=== PATIENT | female | born 1980 | race African-American/Black ===

== ENCOUNTER 2018-06-14 12:21 | Emergency (ER) | payer MEDICAID ==
[~2018-06-14] VITALS: Ht 175.3 cm; Wt 93.9 kg
[2018-06-14 14:01] LABS: Basophils # (auto) 0.1 uL; Basophils % (auto) 0.8 % (0.0-2.0); Eosinophils # (auto) 0.1 uL; Eosinophils % (auto) 1.2 % (0.0-7.0); Hematocrit 40.2 % (36.0-46.0); Hemoglobin 13.8 g/dL (12.2-16.2); Lymphocytes # (auto) 1.5 uL; Mean Corpuscular Hgb Conc. 34.5 g/dL (32.0-36.0); Monocytes # (auto) 0.3 uL; Monocytes % (auto) 4.9 % (0.0-12.0); Neutrophils # (auto) 4.4 uL; Neutrophils % (auto) 69.1 % (37.0-80.0); Platelet Count (auto) 265 10^3/uL (140-450); Red Blood Cells 4.78 10^6/uL (4.0-5.20); Red Cell Distribution Width 15.6 % (11.8-14.3); White Blood Cell 6.4 10^3/uL (4.4-10.8)
[2018-06-14 14:16] LABS: Albumin 3.8 g/dL (3.4-5.0); Calcium 9.1 mg/dL (8.5-10.1); Potassium 3.7 mmol/L (3.5-5.1)
[2018-06-14 14:20] LABS: Bilirubin, Total 0.3 mg/dL (0.2-1.0); Total Protein 8.1 g/dL (6.4-8.2)
[2018-06-14 16:56] LABS: Urine Bacteria NONE SEEN /hpf (None Seen); Urine Blood Negative /uL (Negative); Urine Mucus FEW (None Seen); Urine Specific Gravity 1.006 (1.001-1.035); Urine WBC 1 /hpf (0 - 5)
[2018-06-14 17:01] VITALS: BP 153/80
== END 2018-06-14 17:04 | disposition home or self-care (01) ==
LOC: ER 12:21
DX: O23.31 Infections of other parts of urinary tract in pregnancy, first trimester (principal); O09.521 Supervision of elderly multigravida, first trimester; O20.0 Threatened abortion; Z3A.08 8 weeks gestation of pregnancy
CPT/HCPCS: 36415; 76801; 80053; 81001; 84702; 85025

== ENCOUNTER 2018-07-10 05:35 | Emergency (ER) | payer MEDICAID ==
[~2018-07-10] VITALS: Ht 175.3 cm; Wt 91.6 kg
[2018-07-10 06:16] LABS: Basophils # (auto) 0.1 uL; Eosinophils # (auto) 0 uL; Eosinophils % (auto) 0.6 % (0.0-7.0); Hematocrit 35.8 % (36.0-46.0); Hemoglobin 12.4 g/dL (12.2-16.2); Lymphocytes # (auto) 1.6 uL; Lymphocytes % (auto) 19.6 % (10.0-50.0); Mean Corpuscular Hemoglobin 29.2 pg (28.0-32.0); Mean Corpuscular Hgb Conc. 34.7 g/dL (32.0-36.0); Mean Corpuscular Volume 84.1 fL (80.0-100.0); Monocytes # (auto) 0.6 uL; Monocytes % (auto) 7.6 % (0.0-12.0); Neutrophils # (auto) 5.9 uL; Neutrophils % (auto) 71.2 % (37.0-80.0); Platelet Count (auto) 220 10^3/uL (140-450); Red Blood Cells 4.26 10^6/uL (4.0-5.20); Red Cell Distribution Width 14.9 % (11.8-14.3); White Blood Cell 8.3 10^3/uL (4.4-10.8)
[2018-07-10 06:19] LABS: Urine WBC None Seen /hpf (0 - 5)
[2018-07-10 06:34] LABS: Urine Bacteria NONE SEEN /hpf (None Seen); Urine Blood 3+ /uL (Negative); Urine Mucus FEW (None Seen); Urine Specific Gravity 1.027 (1.001-1.035)
[2018-07-10 06:36] LABS: Albumin 3.4 g/dL (3.4-5.0); Calcium 9.1 mg/dL (8.5-10.1); Potassium 3.6 mmol/L (3.5-5.1)
[2018-07-10 06:42] LABS: Bilirubin, Total 0.4 mg/dL (0.2-1.0)
[2018-07-10 07:00] LABS: BUN/Creatinine Ratio 9.8
[2018-07-10 08:47] VITALS: BP 139/85
== END 2018-07-10 09:17 | disposition home or self-care (01) ==
LOC: ER 05:35
DX: O46.91 Antepartum hemorrhage, unspecified, first trimester (principal); Z90.49 Acquired absence of other specified parts of digestive tract; Z3A.12 12 weeks gestation of pregnancy
CPT/HCPCS: 36415; 76801; 80053; 81001; 81025; 84702; 85025

== ENCOUNTER 2018-08-03 11:38 | Inpatient (IN) | payer MEDICAID ==
[~2018-08-03] VITALS: Ht 175.3 cm; Wt 95.2 kg
[2018-08-03 12:30] LABS: Basophils # (auto) 0 uL; Basophils % (auto) 0.5 % (0.0-2.0); Eosinophils # (auto) 0 uL; Eosinophils % (auto) 0.4 % (0.0-7.0); Hemoglobin 12.5 g/dL (12.2-16.2); Lymphocytes # (auto) 0.7 uL; Lymphocytes % (auto) 11.1 % (10.0-50.0); Mean Corpuscular Hgb Conc. 33.8 g/dL (32.0-36.0); Mean Corpuscular Volume 85.8 fL (80.0-100.0); Monocytes # (auto) 0.7 uL; Neutrophils # (auto) 4.7 uL; Platelet Count (auto) 222 10^3/uL (140-450); Red Blood Cells 4.31 10^6/uL (4.0-5.20); Red Cell Distribution Width 15.6 % (11.8-14.3); White Blood Cell 6.1 10^3/uL (4.4-10.8)
[2018-08-03 12:44] LABS: INR 0.91 (0.9-1.15); Prothrombin Time 9.8 sec (9.27-12.13)
[2018-08-03 12:47] LABS: Albumin 3.5 g/dL (3.4-5.0); BUN/Creatinine Ratio 7.1; Calcium 9.1 mg/dL (8.5-10.1); Potassium 3.7 mmol/L (3.5-5.1)
[2018-08-03 12:50] LABS: Bilirubin, Total 0.5 mg/dL (0.2-1.0); Total Protein 8.3 g/dL (6.4-8.2)
[2018-08-03] MEDS ORDERED: fentaNYL CITRATE 100 MCG/2 ML VL ONE (15:24)
[2018-08-03] MEDS ORDERED: PROPOFOL 10 MG/ML 20 ML IV ONE (15:25)
[2018-08-03] MEDS ORDERED: cefTRIAXone 1GM/50ML D5W 50 ML IV ONE (15:36)
[2018-08-03] MEDS ORDERED: HYDROmorphone HCL 2 MG/ML VL IV PRN (15:45)
[2018-08-03] MEDS ORDERED: ONDANSETRON HCL 4 MG/2 ML VIAL IV ONE (15:45)
[2018-08-03] MEDS ORDERED: ePHEDrine SULFATE 50 MG/ML AMP IV PRN (15:45)
[2018-08-03] MEDS ORDERED: LABETALOL HCL 5 MG/ML 4ML SYRINGE IV PRN (15:45)
[2018-08-03] MEDS ORDERED: MORPHINE SULFATE 4 MG/ML SYR/VIAL IV PRN (15:45)
[2018-08-03] MEDS ORDERED: MORPHINE SULFATE 4 MG/ML SYR/VIAL IV ONE (16:00)
[2018-08-03 17:40] VITALS: BP 134/91
[2018-08-03] MEDS: NIFEdipine 10 MG CAP PO SCH ×2 (18:40→19:40)
[2018-08-03] MEDS: metroNIDAZOLE 500 MG TAB PO SCH (22:14)
[2018-08-03] MEDS: DOCUSATE SOD 100 MG CAP PO SCH (22:15)
[2018-08-03 23:00] VITALS: BP 130/76
[2018-08-03] MEDS: LACTATED RINGER'S 1,000 ML IV SCH (23:16)
[2018-08-04 01:10] VITALS: BP 115/55
[2018-08-04] MEDS: NIFEdipine 10 MG CAP PO SCH ×5 (01:11→23:51)
[2018-08-04 02:51] VITALS: BP 123/66
[2018-08-04] MEDS: metroNIDAZOLE 500 MG TAB PO SCH ×3 (05:27→21:53)
[2018-08-04] MEDS: LACTATED RINGER'S 1,000 ML IV SCH ×3 (05:28→19:05)
[2018-08-04] MEDS: ACETAMINOPHEN 325 MG TAB PO PRN ×3 (08:17→23:13)
[2018-08-04] MEDS ORDERED: cefTRIAXone SOD 1,000 MG VL IM SCH (10:00)
[2018-08-04] MEDS: DOCUSATE SOD 100 MG CAP PO SCH ×2 (10:11→21:53)
[2018-08-04 10:40] VITALS: BP 114/61
[2018-08-04] MEDS: PRENATAL VITAMIN TAB PO SCH (10:49)
[2018-08-04] MEDS: cefTRIAXone 1GM/50ML D5W 50 ML IV SCH (10:49)
[2018-08-04] MEDS: SODIUM CHLORIDE 0.9% 1,000 ML IV SCH (19:30)
[2018-08-04 23:05] VITALS: BP 124/66
[2018-08-05] MEDS: ONDANSETRON HCL 4 MG/2 ML VIAL IV PRN (00:23)
[2018-08-05] MEDS: LACTATED RINGER'S 1,000 ML IV SCH ×3 (01:45→15:05)
[2018-08-05] MEDS: SODIUM CHLORIDE 0.9% 1,000 ML IV SCH ×4 (02:32→21:21)
[2018-08-05 03:00] VITALS: BP 116/61
[2018-08-05] MEDS: metroNIDAZOLE 500 MG TAB PO SCH ×2 (05:52→14:41)
[2018-08-05] MEDS: NIFEdipine 10 MG CAP PO SCH ×3 (05:53→18:19)
[2018-08-05] MEDS: PRENATAL VITAMIN TAB PO SCH (09:35)
[2018-08-05] MEDS: DOCUSATE SOD 100 MG CAP PO SCH ×2 (09:35→21:21)
[2018-08-05] MEDS: cefTRIAXone 1GM/50ML D5W 50 ML IV SCH (09:35)
[2018-08-05] MEDS: ACETAMINOPHEN 325 MG TAB PO PRN ×2 (11:55→18:19)
[2018-08-05] MEDS ORDERED: PSEUDOEPHEDRINE HCL 30 MG TAB PO SCH (15:00)
[2018-08-05] MEDS: PSEUDOEPHEDRINE HCL 30 MG TAB PO PRN (16:45)
[2018-08-05] MEDS ORDERED: PREN-96 PO (18:54)
[2018-08-05 21:59] VITALS: BP 123/75
[2018-08-06] MEDS: PSEUDOEPHEDRINE HCL 30 MG TAB PO PRN ×2 (00:06→21:52)
[2018-08-06] MEDS: SODIUM CHLORIDE 0.9% 1,000 ML IV SCH ×4 (02:51→23:28)
[2018-08-06 04:32] VITALS: BP 121/71
[2018-08-06] MEDS: NIFEdipine 10 MG CAP PO SCH ×4 (05:59→18:52)
[2018-08-06] MEDS: ACETAMINOPHEN 325 MG TAB PO PRN ×4 (06:02→18:52)
[2018-08-06 08:54] VITALS: BP 114/66
[2018-08-06] MEDS: cefTRIAXone 1GM/50ML D5W 50 ML IV SCH (09:09)
[2018-08-06] MEDS: DOCUSATE SOD 100 MG CAP PO SCH ×2 (09:09→21:51)
[2018-08-06] MEDS: PRENATAL VITAMIN TAB PO SCH (09:18)
[2018-08-06 12:53] VITALS: BP 124/73
[2018-08-06 17:18] VITALS: BP 119/72
[2018-08-06 21:37] VITALS: BP 119/74
[2018-08-07] MEDS: NIFEdipine 10 MG CAP PO SCH ×4 (01:03→18:04)
[2018-08-07] MEDS: ACETAMINOPHEN 325 MG TAB PO PRN ×4 (01:03→18:11)
[2018-08-07 04:55] VITALS: BP 120/70
[2018-08-07] MEDS: SODIUM CHLORIDE 0.9% 1,000 ML IV SCH ×3 (06:19→22:30)
[2018-08-07] MEDS ORDERED: LACTULOSE 20Gm/30ML SOLN ONE (08:47)
[2018-08-07] MEDS: cefTRIAXone 1GM/50ML D5W 50 ML IV SCH (08:50)
[2018-08-07] MEDS: DOCUSATE SOD 100 MG CAP PO SCH ×2 (08:50→22:29)
[2018-08-07 09:00] VITALS: BP 131/79
[2018-08-07] MEDS: PSEUDOEPHEDRINE HCL 30 MG TAB PO PRN (09:04)
[2018-08-07] MEDS: LACTULOSE 20Gm/30ML SOLN PO SCH (09:04)
[2018-08-07] MEDS: PRENATAL VITAMIN TAB PO SCH (10:00)
[2018-08-07 13:00] VITALS: BP 121/73
[2018-08-07 16:57] VITALS: BP 128/67
[2018-08-07 22:00] VITALS: BP 129/78
[2018-08-08] MEDS: NIFEdipine 10 MG CAP PO SCH ×2 (00:14→05:58)
[2018-08-08] MEDS: ACETAMINOPHEN 325 MG TAB PO PRN ×2 (00:15→05:58)
[2018-08-08] MEDS: SODIUM CHLORIDE 0.9% 1,000 ML IV SCH ×3 (04:56→16:00)
[2018-08-08 05:06] VITALS: BP 124/75
[2018-08-08 08:00] VITALS: BP 110/67
[2018-08-08 09:00] VITALS: BP 110/67
[2018-08-08] MEDS ORDERED: BISACODYL 10 MG RECT SUPP PR ONE (09:15)
[2018-08-08] MEDS: LACTULOSE 20Gm/30ML SOLN PO SCH (09:50)
[2018-08-08] MEDS: PRENATAL VITAMIN TAB PO SCH (09:50)
[2018-08-08] MEDS: cefTRIAXone 1GM/50ML D5W 50 ML IV SCH (09:50)
[2018-08-08] MEDS: DOCUSATE SOD 100 MG CAP PO SCH (09:51)
[2018-08-08] MEDS: ONDANSETRON HCL 4 MG/2 ML VIAL IV PRN ×2 (10:52→21:45)
[2018-08-08] MEDS ORDERED: OXYTOCIN 10UNIT/ML 1ML VIAL ONE ×3 (11:15→19:18)
[2018-08-08] MEDS ORDERED: PROMETHAZINE HCL 25 MG/ML 1ML IV PRN (13:15)
[2018-08-08] MEDS ORDERED: NALBUPHINE HCL 10 MG/1ml INJECTION IV PRN (13:15)
[2018-08-08] MEDS ORDERED: MORPHINE SULFATE 4 MG/ML SYR/VIAL IV ONE ×2 (13:15→20:00)
[2018-08-08 15:15] VITALS: BP 146/86
[2018-08-08] MEDS ORDERED: LACT. RINGERS/OXYTOCIN 20UNITS 1,000 ML IV ONE (16:34)
[2018-08-08] MEDS ORDERED: METHYLERGONOVINE MALEATE 0.2 MG/ML AMP IM ONE ×2 (17:45→17:46)
[2018-08-08] MEDS ORDERED: CARBOPROST TROMETHAMINE 250 MCG/1ML VIAL IM ONE ×2 (17:45→17:46)
[2018-08-08] MEDS ORDERED: ceFAZolin 1GM/50ML 50 ML IV ONE (17:49)
[2018-08-08] MEDS ORDERED: PROPOFOL 10 MG/ML 20 ML IV ONE (18:00)
[2018-08-08] MEDS ORDERED: MIDAZOLAM HCL 1MG/1ML-2 ML VIAL ONE (18:27)
[2018-08-08] MEDS ORDERED: fentaNYL CITRATE 100 MCG/2 ML VL ONE (18:27)
[2018-08-08] MEDS ORDERED: KETOROLAC TROMETH 30 MG/ML 1ML VIAL IV ONE (18:30)
[2018-08-08] MEDS ORDERED: ePHEDrine SULFATE 50 MG/ML AMP IV PRN (18:30)
[2018-08-08] MEDS ORDERED: MIDAZOLAM HCL 1MG/1ML-2 ML VIAL IV PRN (18:30)
[2018-08-08] MEDS ORDERED: MORPHINE SULFATE 4 MG/ML SYR/VIAL IV PRN (18:30)
[2018-08-08] MEDS ORDERED: LABETALOL HCL 5 MG/ML 4ML SYRINGE IV PRN (18:30)
[2018-08-08] MEDS ORDERED: ONDANSETRON HCL 4 MG/2 ML VIAL IV ONE (18:30)
[2018-08-08] MEDS ORDERED: DEXAMETHASONE SOD PHOS 10MG/1ML VIAL INJ ONE (18:44)
[2018-08-08] MEDS: HYDROmorphone HCL 2 MG/ML VL IV PRN ×2 (19:20→19:45)
[2018-08-08] MEDS ORDERED: ONDANSETRON HCL 4 MG/2 ML VIAL IV PRN (19:30)
[2018-08-08 20:01] VITALS: BP 149/74
[2018-08-08 20:04] LABS: Basophils # (auto) 0 uL; Basophils % (auto) 0.2 % (0.0-2.0); Eosinophils # (auto) 0.1 uL; Eosinophils % (auto) 1.2 % (0.0-7.0); Hematocrit 30.8 % (36.0-46.0); Hemoglobin 10.5 g/dL (12.2-16.2); Lymphocytes # (auto) 0.9 uL; Mean Corpuscular Hemoglobin 29.3 pg (28.0-32.0); Mean Corpuscular Volume 85.9 fL (80.0-100.0); Monocytes # (auto) 0.5 uL; Monocytes % (auto) 4.9 % (0.0-12.0); Neutrophils # (auto) 8.9 uL; Neutrophils % (auto) 84.7 % (37.0-80.0); Platelet Count (auto) 196 10^3/uL (140-450); Red Blood Cells 3.58 10^6/uL (4.0-5.20); Red Cell Distribution Width 15.6 % (11.8-14.3); White Blood Cell 10.6 10^3/uL (4.4-10.8)
[2018-08-08] MEDS: MORPHINE SULFATE 4 MG/ML SYR/VIAL IV PRN (21:45)
[2018-08-09 00:02] VITALS: BP 139/85
[2018-08-09 02:56] VITALS: BP 126/68
[2018-08-09] MEDS: SODIUM CHLORIDE 0.9% 1,000 ML IV SCH ×2 (03:00→11:58)
[2018-08-09] MEDS ORDERED: DERMOPLAST 60ML BOTTLE TOP ONE (03:24)
[2018-08-09 06:35] VITALS: BP 112/65
[2018-08-09 07:19] LABS: Basophils # (auto) 0.1 uL; Basophils % (auto) 0.7 % (0.0-2.0); Eosinophils # (auto) 0 uL; Eosinophils % (auto) 0.4 % (0.0-7.0); Hematocrit 27.2 % (36.0-46.0); Hemoglobin 9.6 g/dL (12.2-16.2); Lymphocytes # (auto) 1.6 uL; Mean Corpuscular Hemoglobin 29.8 pg (28.0-32.0); Mean Corpuscular Hgb Conc. 35.1 g/dL (32.0-36.0); Monocytes # (auto) 0.8 uL; Monocytes % (auto) 7.5 % (0.0-12.0); Neutrophils # (auto) 8.7 uL; Neutrophils % (auto) 77.4 % (37.0-80.0); Nucleated Red Blood Cells % 0.1 %; Platelet Count (auto) 210 10^3/uL (140-450); Red Cell Distribution Width 15.7 % (11.8-14.3); White Blood Cell 11.3 10^3/uL (4.4-10.8)
[2018-08-09] MEDS: ACETAMINOPHEN 325 MG TAB PO PRN ×2 (07:29→14:06)
[2018-08-09] MEDS: cefTRIAXone 1GM/50ML D5W 50 ML IV SCH (09:56)
[2018-08-09] MEDS: MORPHINE SULFATE 4 MG/ML SYR/VIAL IV PRN (11:55)
[2018-08-09 16:20] VITALS: BP 146/75
[2018-08-10] MEDS ORDERED: MAKENA IM SCH (10:00)
[2018-08-10] MEDS ORDERED: [UNRECOGNIZED DRUG - OTHER] IM SCH (10:00)
== END 2018-08-09 17:00 | disposition home or self-care (01) | DRG 541 ==
LOC: ER 11:38 → OR 1 11:39 → LDRP 11:40 → EAST 08-05 17:37 → LDRP 08-08 11:40
PROVIDERS: ADMIT Specialist; ATTEND Specialist
PROC: 0UVC7ZZ Restriction of Cervix, Via Natural or Artificial Opening (ICD-10-PCS; principal; 2018-08-03 15:31)
PROC: 10D17Z9 Manual Extraction of Products of Conception, Retained, Via Natural or Artificial Opening (ICD-10-PCS; 2018-08-08)
PROC: 0UCC7ZZ Extirpation of Matter from Cervix, Via Natural or Artificial Opening (ICD-10-PCS; 2018-08-08)
DX: O34.32 Maternal care for cervical incompetence, second trimester (principal); Z37.1 Single stillbirth; O36.4XX0 Maternal care for intrauterine death, not applicable or unspecified; O72.0 Third-stage hemorrhage; D25.9 Leiomyoma of uterus, unspecified; J45.909 Unspecified asthma, uncomplicated; O09.522 Supervision of elderly multigravida, second trimester; Z3A.16 16 weeks gestation of pregnancy; O34.12 Maternal care for benign tumor of corpus uteri, second trimester; O99.512 Diseases of the respiratory system complicating pregnancy, second trimester; Z82.0 Family history of epilepsy and other diseases of the nervous system; Z82.49 Family history of ischemic heart disease and other diseases of the circulatory system; Z83.3 Family history of diabetes mellitus; Z87.891 Personal history of nicotine dependence; Z90.49 Acquired absence of other specified parts of digestive tract; Z88.8 Allergy status to other drugs, medicaments and biological substances; Z91.018 Allergy to other foods
CPT/HCPCS: 36415; 80053; 84702; 85025; 85610; 85730; 86850; 86900; 86901; 96360; 96361; 96366; 96374; 96375; G0378; J0690; J0696; J1100; J1885; J2250; J2405; J2590; J2704